=== PATIENT | female | born 1955 | race African-American/Black ===

== ENCOUNTER 2024-05-02 12:58 | Emergency (ER) | payer MEDICARE, OTHER ==
[2024-05-02 13:39] LABS: Basophils % (A) 1 %; Eosinophils # (A) 0.1 k/uL (0-0.7); Eosinophils % (A) 2 %; HCT 34.6 % (34.0-46.0); HGB 11.2 gm/dL (11.4-16.0); Lymphocytes # (A) 2.8 k/uL (1.0-4.8); Lymphocytes % (A) 43 %; MCHC 32.4 g/dL (31.0-37.0); MCV 83.2 fL (80.0-100.0); Mean Platelet Volume 8.8; Monocytes # (A) 0.3 k/uL (0-1.0); Monocytes % (A) 4 %; Neutrophils # (A) 3.1 k/uL (1.3-7.7); Neutrophils % (A) 48 %; Platelet Count 292 k/uL (150-450); RBC 4.15 m/uL (3.80-5.40); RDW 13.7 % (11.5-15.5); WBC 6.5 k/uL (3.8-10.6)
[2024-05-02 13:56] LABS: ALT 12 U/L (4-34); AST 18 U/L (14-36); African American GFR (CKD) 62 (>60 ml/min/1.73 sqM); Albumin 4.5 g/dL (3.5-5.0); Alkaline Phosphatase 130 U/L (38-126); Anion Gap 8 mmol/L; Blood Urea Nitrogen 14 mg/dL (7-17); Calcium 10.1 mg/dL (8.4-10.2); Carbon Dioxide 25 mmol/L (22-30); Chloride 110 mmol/L (98-107); Glucose 97 mg/dL (74-99); Lipase 71 U/L (23-300); Magnesium 1.9 mg/dL (1.6-2.3); Non-African American GFR(CKD) 54 (>60 ml/min/1.73 sqM); Potassium 4.6 mmol/L (3.5-5.1); Sodium 143 mmol/L (137-145); Total Bilirubin 0.4 mg/dL (0.2-1.3); Total Protein 7.2 g/dL (6.3-8.2)
[2024-05-02 13:59] LABS: Partial Thromboplastin Time 25.3 sec (22.0-30.0); Prothrombin Time 10.6 sec (10.0-12.5)
--- NOTE | 2024-05-02 14:03 | XR ---
EXAMINATION TYPE: XR chest 2V DATE OF EXAM: 05/02/2024 1:40 PM COMPARISON: Chest radiographs from 05/02/2024 CLINICAL INDICATION: Female, 68 years old with history of Chest Pain; TECHNIQUE: XR chest 2V Frontal and lateral views of the chest. FINDINGS: Lungs/Pleura: There is no evidence of pleural effusion, focal consolidation, or pneumothorax. Pulmonary vascularity: Unremarkable. Heart/mediastinum: Cardiomediastinal silhouette is unremarkable. Musculoskeletal: No acute osseous pathology. Other findings: None IMPRESSION: No acute cardiopulmonary disease/process. [facility], , 05/02/2024 2:00 PM
--- NOTE | 2024-05-02 14:32 | ED ---
Chest Pain HPI - General Chief Complaint: Chest Pain Stated Complaint: Chest pain Time Seen by Provider: 05/02/24 13:20 Source: patient Mode of arrival: ambulatory Limitations: no limitations - History of Present Illness Initial Comments: 68-year-old female presents emergency department reporting chest pain. Chest pain started approximately 30 minutes prior to ED evaluation. It was sudden onset and maximal intensity, 8 out of 10 at onset. 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 She denies history of cardiac disease. Does have a history of high cholesterol. The pain lasted for 15 minutes before it went away. She denies any active pain at this time. She denies any calf pain or swelling. No history of DVT or PE. No history of COPD. Denies any difficulty breathing. There is no associated diaphoresis. She does not take anything for the pain. No other alleviating, precipitating or modifying factors - Related Data Home Medications Medication Instructions Recorded Confirmed Atorvastatin [Lipitor] 10 mg PO DAILY 05/02/24 05/04/24 Allergies Allergy/AdvReac Type Severity Reaction Status Date / Time No Known Allergies Allergy Verified 05/02/24 13:58 Review of Systems ROS Statement: Those systems with pertinent positive or pertinent negative responses have been documented in the HPI. ROS Other: All systems not noted in ROS Statement are negative. Past Medical History Past Medical History: Hyperlipidemia Past Surgical History: Section Additional Past Surgical History / Comment(s): cyst removal behind L ear Smoking Status: Current some day smoker Past Alcohol Use History: None Reported Past Drug Use History: Marijuana General Exam Limitations: no limitations General appearance: alert, in no apparent distress Head exam: Present: atraumatic, normocephalic, normal inspection Eye exam: Present: normal appearance, PERRL, EOMI. Absent: scleral icterus, conjunctival injection, periorbital swelling ENT exam: Present: normal exam, mucous membranes moist Neck exam: Present: normal inspection. Absent: tenderness, meningismus, lymphadenopathy Respiratory exam: Present: normal lung sounds bilaterally. Absent: respiratory distress, wheezes, rales, rhonchi, stridor Cardiovascular Exam: Present: regular rate, normal rhythm, normal heart sounds. Absent: systolic murmur, diastolic murmur, rubs, gallop, clicks GI/Abdominal exam: Present: soft, normal bowel sounds. Absent: distended, tenderness, guarding, rebound, rigid Extremities exam: Present: normal inspection, full ROM, normal capillary refill. Absent: tenderness, pedal edema, joint swelling, calf tenderness Back exam: Present: normal inspection Neurological exam: Present: alert, oriented X3, CN II-XII intact Psychiatric exam: Present: normal affect, normal mood Skin exam: Present: warm, dry, intact, normal color. Absent: rash Course Vital Signs 05/02/24 05/02/24 13:06 14:58 Temperature 98.2 F 98 F Pulse Rate 72 78 Respiratory 18 15 Rate Blood Pressure 137/75 122/69 O2 Sat by Pulse 98 97 Oximetry Chest Pain MDM - MDM Was pt. sent in by a medical professional or institution (, PA, GANDY DANCER, urgent care, hospital, or intermediate...) When possible be specific @ -No Did you speak to anyone other than the patient for history (EMS, parent, family, police, friend...)? What history was obtained from this source @ -No Did you review nursing and triage notes (agree or disagree)? Why? @ -I reviewed and agree with nursing and triage notes Were old charts reviewed (outside hosp., previous admission, EMS record, old EKG, old radiological studies, urgent care reports/EKG's, intermediate records)? Report findings @ -No old charts were reviewed Differential Diagnosis (chest pain, altered mental status, abdominal pain women, abdominal pain men, vaginal bleeding, weakness, fever, dyspnea, syncope, headache, dizziness, GI bleed, back pain, seizure, CVA, palpatations, mental health, musculoskeletal)? @ -Differential Chest Pain: Stable Angina, Unstable Angina, STEMI, NSTEMI Aortic Dissection, Pneumothorax, Musculoskeletal, Esophageal Spasm GERD, Cholecystitis, Pancreatitis, Zoster, this is not meant to be an all-inclusive list. EKG interpreted by me (3pts min.). @ -Yes and demonstrates sinus rhythm with a rate of 80. Parable 163. QRS 82. QTc of 396. No acute ST segment elevations or depressions X-rays interpreted by me (1pt min.). @ -Yes which demonstrates no acute process CT interpreted by me (1pt min.). @ -None done U/S interpreted by me (1pt. min.). @ -None done What testing was considered but not performed or refused? (CT, X-rays, U/S, labs)? Why? @ -Echo and stress test however patient does not want to be admitted What meds were considered but not given or refused? Why? @ -None Did you discuss the management of the patient with other professionals (professionals i.e. , PA, GANDY DANCER, lab, RT, psych nurse, social sciences chair, leather stitcher, teacher, unarmed security officer, rn case mgr)? Give summary @ -No Was smoking cessation discussed for >3mins.? @ -No Was critical care preformed (if so, how long)? @ -No Were there social determinants of health that impacted care today? How? (Homelessness, low income, unemployed, alcoholism, drug addiction, transportation, low edu. Level, literacy, decrease access to med. care, shelter, rehab)? @ -No Was there de-escalation of care discussed even if they declined (Discuss DNR or withdrawal of care, Hospice)? DNR status @ -No What co-morbidities impacted this encounter? (DM, HTN, Smoking, COPD, CAD, Cancer, CVA, ARF, Chemo, Hep., AIDS, mental health diagnosis, sleep apnea, morbid obesity)? @ -High cholesterol Was patient admitted / discharged? Hospital course, mention meds given and route, prescriptions, significant lab abnormalities, going to OR and other pertinent info. @ -Upon arrival patient seen and evaluated in bed 21. Thorough history and physical exam was performed. Patient is pain-free at this time. Twelve-lead EKG was obtained which demonstrates no acute findings. Laboratory studies are conducted and patient goes for chest x-ray. The results are discussed with the patient. I did recommend overnight observation in order to trend the patient's troponins however patient refused and wanted to go home. I did request to perform a second troponin level at minimum for which the patient was agreeable to. Second troponin was performed and is negative. Patient discharged home and instructed to follow-up with her primary care doctor. Recommend further testing of the heart to include echo and Holter monitoring. She is to return for any new or worsening symptoms. Patient was agreeable to this plan she was discharged home in stable condition Undiagnosed new problem with uncertain prognosis? @ -No Drug Therapy requiring intensive monitoring for toxicity (Heparin, Nitro, Insulin, Cardizem)? @ -No Were any procedures done? @ -No Diagnosis/symptom? @ -Acute chest painresolved Acute, or Chronic, or Acute on Chronic? @ -Acute Uncomplicated (without systemic symptoms) or Complicated (systemic symptoms)? @ -Complicated Side effects of treatment? @ -No Exacerbation, Progression, or Severe Exacerbation? @ -No Poses a threat to life or bodily function? How? (Chest pain, USA, CT, pneumonia, PE, COPD, DKA, ARF, appy, cholecystitis, CVA, Diverticulitis, Homicidal, Suicidal, threat to staff... and all critical care pts) @ -No Disposition Clinical Impression: Chest pain Disposition: HOME SELF-CARE Condition: Stable Instructions (If sedation given, give patient instructions): Chest Pain (ED) Additional Instructions: Please follow-up with your primary care doctor at your earliest convenience. We do recommend within 2 to 4 days. They may want to complete further testing to include an echo and stress test. Return to the emergency department should you have any new or worsening symptoms. If your laboratory testing comes back abnormal I will call you Is patient prescribed a controlled substance at d/c from ED?: No Referrals: Nonstaff,Physician [Primary Care Provider] - 1-2 days Time of Disposition: 14:32
[2024-05-02 14:58] VITALS: BP 122/69; PULSE 78; RESP 15; TEMP 98
== END 2024-05-02 14:58 | disposition home or self-care (01) ==
LOC: EC 12:58
DX: R07.89 Other chest pain (principal); E78.00 Pure hypercholesterolemia, unspecified; F17.200 Nicotine dependence, unspecified, uncomplicated
CPT/HCPCS: 36415; 71046; 80053; 83690; 83735; 84484; 85025; 85379; 85610; 85730; 93005; 99285

== ENCOUNTER → 2024-05-04 | Outpatient (CLI) | payer MEDICARE, OTHER ==
[2024-05-04 15:22] VITALS: BP 160/91; PULSE 80; RESP 16; TEMP 98.5
--- NOTE | 2024-05-04 17:21 | P.SLEEP ---
History of Present Illness DATE: 05/04/2024 CONSULTATION/NEW PATIENT EVALUATION HISTORY OF PRESENT ILLNESS/SLEEP-WAKE EVALUATION: 68-year-old lady had been evaluated in the sleep center for possible obstructive sleep apnea hypopnea syndrome. SLEEP SCHEDULE: Usually sleep schedule 8 PM to 3:40 AM on working days during the week and from 9 PM to 6 AM on weekend. FALLING ASLEEP: Patient has difficulties with falling asleep. DURING SLEEP: Snores, has positive history of sweating during the sleep. Patient wakes up from sleep 3 times with 3 episodes of nocturia and has difficulties to initiate sleep again after awakenings. No history of hypnogogical hallucinations, sleep paralysis, or cataplexy. DURING THE DAY/WAKE STATE: Patient feels sleepiness during the day. [place] sleepiness scale is is an extremely high range of 20. Usually patient does not take naps although. PAST MEDICAL HISTORY: Hyperlipidemia. PAST SURGICAL HISTORY: Enlarged gland removed behind left ear in February 2021. MEDICATIONS: Atorvastatin 5 mg once a day. SOCIAL HISTORY: Please see below. FAMILY HISTORY: Please see below. REVIEW OF SYSTEMS: Snoring, multiple awakenings from sleep, sleepiness during the day. No fevers. No double vision. No recent chest pain. No shortness of breath. No abdominal pain. No bleeding episodes. No blood in urine. No seizure e pisodes. PHYSICAL EXAMINATION: GENERAL: A pleasant patient without any distress. VITAL SIGNS: Please see below, weight 119 pounds, BMI 22.8. HEENT: PERRLA, EOMI. Evaluation of oropharynx showed tongue protrudes midline, low position of soft palate Mallampati 23. NECK: Supple. No JVD. Thyroid is not palpable. 12 inches in circumference. LUNGS: Clear to percussion and to auscultation. Good air exchange. No wheezing or rhonchi. HEART: S1, S2 regular. No murmurs, gallops or rubs. ABDOMEN: Soft and nontender. Bowel sounds are present. No organomegaly appreciated. EXTREMITIES: No clubbing or cyanosis. SHIP LINER: Awake, alert, and oriented x3. Cranial nerves 2 to 7 intact. There is no fasciculation or atrophy noted. No focal deficits observed. ASSESSMENT: 1. Snoring, multiple awakenings from sleep, low position of soft palate, sleepiness during the day. Obstructive sleep apnea hypopnea syndrome. 2. Significant excessive daytime sleepiness with extremely high [place] Sleepiness Scale of 20 dictate necessity to include hypersomnia and narcolepsy and differential diagnosis. 3. Hypertension in the office. 4. Hyperlipidemia. 5 status post enlarged gland removed behind left ear in 2020. 6 . Difficulties to initiate sleep in the beginning of the night and after awakenings from sleep. PLAN: 1. Polysomnography for evaluation of patient's breathing during sleep. Multiple sleep latency test if sleep study will be negative for obstructive sleep apnea hypopnea syndrome 2. Following plan after reading sleep study. 3. Preferable position during sleep on the side. 4. No driving if patient feels any sleepiness. Patient is aware of civil and criminal liability for unsafe driving. 5. Sleep hygiene with regular sleep time for at least 7.5-8 hours. Thank you very much for referring this patient for consultation. Sincerely, Virgilio Drummond MD, PhD, FAASM. Diplomat of [place] [employer], Sleep Medicine Board by [place] [employer] [place] [employer] Seo Strategist [facility] [place] cc: Racheal Peralta POULTRY DEBEAKERRylan Past Medical History Past Medical History: Hyperlipidemia History of Any Multi-Drug Resistant Organisms: None Reported Past Surgical History: Section Additional Past Surgical History / Comment(s): cyst removal behind L ear Past Anesthesia/Blood Transfusion Reactions: No Reported Reaction Past Psychological History: No Psychological Hx Reported Smoking Status: Current some day smoker Past Alcohol Use History: None Reported Past Drug Use History: Marijuana - Past Family History Mother Family Medical History: Diabetes Mellitus Father Family Medical History: Cancer Additional Family Medical History / Comment(s): pancreate Ca Medications and Allergies Home Medications Medication Instructions Recorded Confirmed Type Atorvastatin [Lipitor] 10 mg PO DAILY 05/02/24 05/04/24 History Allergies Allergy/AdvReac Type Severity Reaction Status Date / Time No Known Allergies Allergy Verified 05/02/24 13:58 Physical Exam Vitals: Vital Signs Temp Pulse Resp BP Pulse Ox 05/04/24 15:21 98.5 F 80 16 160/91 97 Intake and Output 05/04/24 05/04/24 05/04/24 06:59 14:59 22:59 Other: Weight 53.977 kg Sleep Note - Sleep Data ESS Total: 20 - Sleep Note Sleep Note: Temperature: 98.5 F Pulse Rate: 80 Respiratory Rate: 16 Blood Pressure: 160/91 SpO2: 97 Height: 5 ft 0.5 in Weight: 53.977 kg BMI: Neck Circumference: 12
== END ==
LOC: 3 N SLEEP 14:54
PROVIDERS: ATTEND Internal Medicine
DX: G47.33 Obstructive sleep apnea (adult) (pediatric) (principal); I10 Essential (primary) hypertension; E78.5 Hyperlipidemia, unspecified; Z98.890 Other specified postprocedural states
CPT/HCPCS: 99211

== ENCOUNTER 2024-06-07 19:33 | Outpatient (CLI) | payer MEDICARE, OTHER ==
[2024-06-08 19:30] LABS: Urine Alcohol Negative (Negative); Urine Barbiturate Negative (Negative); Urine Cocaine Negative (Negative); Urine Methadone Negative (Negative); Urine Opiates Negative (Negative); Urine Phencyclidine Negative (Negative)
--- NOTE | 2024-06-09 17:17 | P.PCN ---
Description of Procedure: POLYSOMNOGRAPHY AND MSLT REPORT PROCEDURE(S)/DATE(S): Polysomnography 06/07/2024, multiple sleep latency test 06/08/2024 CLINICAL: Patient has been seen in the sleep center for evaluation of obstructive sleep apnea-hypopnea syndrome. Please see my consultation. Sleep study has been done for evaluation of patient breathing during the sleep. PROCEDURE: The standard montage for clinical polysomnography included the electroencephalogram, the electrooculogram, the mentalis surface elec tromyography and Lead II cardiography. The respiratory battery consisted of measurements of nasal/buccal air flow, pressure transducer measurements from nose, thoracic and/or abdominal effort and intercostal surface electromyography. Video monitoring has been done to check for any parasomnia events. Nocturnal oxyhemoglobin saturations were obtained by finger oximetry. Step-mendoza titration with positive airway pressure was utilized to control the respiratory events, if necessary. RESULTS: During the diagnostic sleep study sleep efficiency was very short only 60.4%. Latency to sleep onset was significantly prolonged to 41.0 min. Sleep architecture showed stage NI was short one 0.8 %, Delta sleep was absent 0%, REM sleep was slightly increased to 31.6%. Respiratory channel showed 8 obstructive apneas, 0 mixed apneas, 3 central apneas, 5 hypopneas with lowest oxygen level 89%. Total apnea hypopnea index was 3.7. Heart rate was in the range between 63 and 69, average 66. EMG showed 0 periodic limb movements per hour. Multiple sleep latency test have been done on the following day, consisted from 5 naps. Patient fell asleep on 2 naps. Mean sleep latency was 18.3 minutes, no sleep onset REM periods have been documented. IMPRESSIONS: 1. No significant respiratory abnormalities have been documented, normal oxygenation during sleep. 2. No significant periodic limb movements have been documented. 3. Low sleep efficiency during polysomnogram could be secondary to insomnia versus first night adaptation response. 4. Multiple sleep latency test did not confirmed sleepiness, mean sleep latency in normal range. Please see other impressions from consultation PLAN: 1. I will see patient for follow-up visit to explain results of the test and recommendations. 2. Sleep hygiene with regular time in bed for at least 7-1/2 hours. 3. No driving if feeling sleepiness. Thank you very much for allowing me to participate in the management of your patient. Sincerely, Virgilio Drummond MD, PhD, FAASM. Diplomat of [place] [employer], Sleep Medicine Board by [place] [employer] Clinical Lab Clerk of [facility] [place] cc: Racheal Peralta
== END 2024-06-08 17:12 | disposition home or self-care (01) ==
LOC: 3 N SLEEP 19:33
PROVIDERS: ATTEND Internal Medicine
DX: G47.9 Sleep disorder, unspecified (principal)
CPT/HCPCS: 80306; 95805; 95810

== ENCOUNTER → 2024-06-15 | Outpatient (CLI) | payer MEDICARE, OTHER ==
[2024-06-15 16:42] VITALS: BP 165/89; PULSE 83; RESP 16; TEMP 98.2
--- NOTE | 2024-06-15 17:13 | P.PROGSL ---
Subjective DATE: 06/15/2024 FOLLOW UP VISIT. Patient returned to sleep center for follow-up visit to discuss results of sleep studies and following plan. I discussed results of sleep studies with patient in details. Diagnostic polysomnogram did not show any significant abnormalities of respiration. Normal oxygenation during sleep. No significant periodic limb movements have been documented. Multiple sleep latency test on the following day consisted from 5 naps and showed normal mean sleep latency. At the same time low sleep efficiency 60.4% was documented during diagnostic polysomnogram with long sleep latency of 41 minutes. [place] sleepiness scale is 7, which is in normal range. During physical exam: GENERAL: A pleasant patient without any distress. VITAL SIGNS: Please see below. HEENT: PERRLA, EOMI. NECK: Supple. No JVD. LUNGS: Clear to percussion and to auscultation. Good air exchange. No wheezing or rhonchi. HEART: S1, S2 regular. ABDOMEN: Soft and nontender. EXTREMITIES: No clubbing or cyanosis. COMMERCIAL PARTS PROFESSIONAL: Awake, alert, and oriented x3. No focal deficit. Impressions: 1. No significant respiratory abnormalities have been documented during polysomnogram 2. No significant periodic limb movements. 3. Mean sleep latency on MSLT 18.3 minutes, which is in normal range. 4. Long sleep latency and low sleep efficiency during polysomnogram with history of difficulties to initiate sleep indicate insomnia. 5. Hyperlipidemia. 6. Hypertension in the office. 7. Status post enlarged gland removed behind left ear in 2020. Plan: 1. Patient will continue treatment with Ambien 5 mg nightly 2. Sleep hygiene with regular time in bed for at least 8 hours. 3. I discussed with patient psychological techniques for treatment of insomnia including stimulus control, paradoxical intention, worried time, no watching Moody Monroe MD. Okay to 4. Precautions related to driving. No driving if feel any sleepiness. Patient is aware about civil and criminal liability for unsafe driving, promised to follow recommendations. 5. Follow up visit in 4-6 months or earlier if patient has any problems. 6. Low-sodium diet, monitoring blood pressure. Thank you very much for allowing me to participate in the management of your patient. Virgilio Drummond MD, PhD, FAASM. Diplomat of [place] [employer], Sleep Medicine Board by [place] [employer] Lvn Lpn [facility] [place] cc: Racheal Negro OFFICE ADMINISTRATIVE ASSISTANTRylan Objective - Vital Signs Vital Signs: Vital Signs Temp 98.2 F 06/15/24 16:41 Pulse 83 06/15/24 16:41 Resp 16 06/15/24 16:41 BP 165/89 06/15/24 16:41 Pulse Ox 98 06/15/24 16:41 FiO2 Home Medications: Home Medications Medication Instructions Recorded Confirmed Type Atorvastatin [Lipitor] 10 mg PO DAILY 05/02/24 05/04/24 History
== END ==
LOC: 3 N SLEEP 16:00
PROVIDERS: ATTEND Internal Medicine
DX: G47.8 Other sleep disorders (principal); E78.5 Hyperlipidemia, unspecified; I10 Essential (primary) hypertension; Z90.89 Acquired absence of other organs
CPT/HCPCS: 99212